=== PATIENT | female | born 1950 | race Caucasian/White ===

== ENCOUNTER → 2016-10-14 | Outpatient (CLI) | payer MEDICARE, OTHER ==
[~2016-10-14] MED LIST: /TIOT18INH INH; ANOR1AER INH; ASPI81TA PO; BENI20TA11 OR; BENI20TA11 PO; BENT10CA PO; CIPR500T19 PO; COLA100C2 OR; CRES20TA OR; DEXA4TA PO; DIGO0.25 PO; DULO1CAP2 PO; DUONSOL IN; FLAG500T PO; FURO40TA2 PO; HYDR-3713 PO; IPRASOL4 NEB; LASI20TA PO; LASI40TA PO; LIAL1.2T PO; LISI40TAB PO; LORA10TA2 PO; Loratadine PO; MIRALEX PO; MUCINEX DM PO; NEUL0.6I SC; OMEP40CA2 PO; PROBCAP4 PO; SIMV40TA2 PO; TOPA50TA7 PO; TOPI50TA OR; TYLE650T35 PO; VITA10006 PO; VITA200016 PO; ZOFR8TAB PO; [UNRECOGNIZED DRUG - CODE] PO; aleve PO; dexilant PO; gabapentin PO
[2016-10-14 14:32] LABS: MEAN CORPUSCULAR HEMOGLOBIN 33.3 pg (27.0-33.0); MEAN CORPUSCULAR VOLUME 100.9 fl (80.0-96.0); RED CELL DISTRIBUTION WIDTH 12.2 % (11.5-14.5); WHITE BLOOD COUNT 4.8 K/mm3 (4.0-10.0)
--- NOTE | 2016-10-14 14:32 | REP ---
RIGHT LOWER EXTREMITY DOPPLER VENOUS ULTRASOUND: 10/14/2016. Clinical history: Right lower extremity pain for a few months. Evaluate for DVT. Comparison: None. Technique: The deep venous system of the right lower extremity is evaluated with jarrell scale imaging, compression ultrasound, color imaging and duplex Doppler interrogation. Examination from the groin through the popliteal fossa into the proximal calf. Findings: There is full compressibility from the common femoral vein in the inguinal region through the popliteal vein. Color imaging confirms patency throughout the course of the deep venous system. There is respiratory variation and augmented flow at all levels. Incidental note made of a duplicated proximal to mid SFV. Impression: 1. No Doppler venous ultrasound evidence of DVT in the right lower extremity. Signed by Yuniel Zapata MD 10/14/2016 02:24 P
[2016-10-14 14:48] LABS: ALBUMIN 4.3 GM/DL (3.2-5.2); ALBUMIN/GLOBULIN RATIO 1.72 (1.00-1.93); ALKALINE PHOSPHATASE 132 U/L (45-117); ALT/SGPT 28 U/L (12-78); ANION GAP 7 MEQ/L (8-16); AST/SGOT 16 U/L (15-37); BILIRUBIN,TOTAL 0.3 MG/DL (0.2-1.0); BLOOD UREA NITROGEN 16 MG/DL (7-18); CALCIUM LEVEL 9.7 MG/DL (8.8-10.2); CARBON DIOXIDE LEVEL 26 MEQ/L (21-32); CHLORIDE LEVEL 108 MEQ/L (98-107); CREATININE FOR GFR 0.58 MG/DL (0.55-1.02); GLOMERULAR FILTRATION RATE > 60.0 (>45); GLUCOSE, FASTING 90 MG/DL (80-110); POTASSIUM SERUM 4.1 MEQ/L (3.5-5.1); SODIUM LEVEL 141 MEQ/L (136-145); TOTAL PROTEIN 6.8 GM/DL (6.4-8.2)
== END ==
LOC: M RAD 12:36
PROVIDERS: ATTEND Internal Medicine Gastroenterology
DX: M79.604 Pain in right leg (principal)

== ENCOUNTER → 2016-10-21 | Outpatient (CLI) | payer MEDICARE, OTHER ==
--- NOTE | 2016-10-21 10:33 | REP ---
Complete abdominal sonography and portal venous Doppler assessment: History: Abdominal pain, gastroesophageal reflux disease. Findings: Scanning through the right upper quadrant of the abdomen demonstrates a normal sized thin-walled gallbladder without evidence of stone or polyp. Common bile duct is normal measuring 0.4 cm in greatest diameter. No focal hepatic lesion is seen. Limited views of the pancreas show no abnormality. A normal size spleen is seen demonstrating calcified granulomas. Splenic dimension is 7.5 cm. A normal caliber aorta is seen measuring 1.8 cm in AP dimension. There is no visible ascites. Renal cortical echogenicity pattern is normal and contours are smooth bilaterally. Right renal dimensions are 9.9 x 4.9 x 4.1 cm. Left kidney measures 11.5 x 4.2 x 5.3 cm. There is no evidence of hydronephrosis mass, cyst or calculus. Portal venous Doppler assessment: Normal direction of flow was observed in the splenic vein and portal vein. Main portal vein measures 1.1 cm in dimension. Flow velocity in the main portal vein is 17.3 cm/sec. Venous flow velocity in the splenic vein is 28.0 cm/sec. Intrahepatic portal venous flow direction is normal. Hepatic vein Doppler tracing shows some portalization which may reflect portal hypertension. Impression: 1. Mild diffuse atrophy right kidney. 2. Portalization of hepatic vein Doppler flow, question portal hypertension. 3. Otherwise unremarkable complete abdominal sonography. Signed by Hugo Felder MD 10/21/2016 10:39 A
== END ==
LOC: M RAD 09:15
PROVIDERS: ATTEND Internal Medicine Gastroenterology
DX: R10.11 Right upper quadrant pain (principal)

== ENCOUNTER 2016-11-08 12:40 | Emergency (ER) | payer MEDICARE, OTHER ==
--- NOTE | 2016-11-08 16:06 | REP ---
Clinical: Cough and shortness of breath. Technique: PA and lateral. Comparison: 07/23/2016. Findings: Diffuse chronic changes are appreciated and similar to prior examination. Findings include a calcified granuloma in the left upper lung zone. No obvious acute consolidation, effusion, or pneumothorax. Cardiac silhouette is normal. Skeletal structures are intact. Impression: Chronic stable changes. No acute cardiopulmonary process. If the patient remains symptomatic consider chest CT for further investigation. Signed by Eliseo Gonzalez MD 11/08/2016 03:57 P
[2016-11-08 16:09] LABS: BASO % 0.5 % (0.0-1.0); EOS # 0.2 K/mm3 (0.0-0.50); LARGE UNSTAINED CELL # 0.1 K/mm3 (0.0-0.4); LARGE UNSTAINED CELL % 1.5 % (0.0-4.0); LYMPH # 2.6 K/mm3 (1.5-4.5); LYMPH % 37.9 % (24.0-44.0); MEAN CORPUSCULAR HEMOGLOBIN 32.5 pg (27.0-33.0); MEAN CORPUSCULAR HGB CONC 32.7 g/dl (32.0-36.5); MEAN CORPUSCULAR VOLUME 99.3 fl (80.0-96.0); MONO # 0.3 K/mm3 (0.0-0.8); MONO % 4.5 % (0.0-5.0); NEUTROPHILS # 3.4 K/mm3 (1.8-7.7); NEUTROPHILS % 52.5 % (36.0-66.0); PLATELET COUNT, AUTOMATED 264 k/mm3 (150-450); RED CELL DISTRIBUTION WIDTH 12.5 % (11.5-14.5); WHITE BLOOD COUNT 6.5 K/mm3 (4.0-10.0)
[2016-11-08] MEDS ORDERED: IPRATROPIUM 0.5MG/ALBUTEROL 2.5MG INH SOL UD 3ML (DUONEB)(J7620) As Ordered ONE (16:11)
[2016-11-08 16:24] LABS: ANION GAP 8 MEQ/L (8-16); BLOOD UREA NITROGEN 13 MG/DL (7-18); CALCIUM LEVEL 9.9 MG/DL (8.8-10.2); CARBON DIOXIDE LEVEL 26 MEQ/L (21-32); CHLORIDE LEVEL 106 MEQ/L (98-107); CREATININE FOR GFR 0.59 MG/DL (0.55-1.02); GLOMERULAR FILTRATION RATE > 60.0 (>45); GLUCOSE, FASTING 89 MG/DL (80-110); POTASSIUM SERUM 4.1 MEQ/L (3.5-5.1); SODIUM LEVEL 140 MEQ/L (136-145)
--- NOTE | 2016-11-08 17:06 | EDDOCDS ---
Physician Documentation [facility] Name: Milvia Alva Age: 66 yrs Sex: Female : 1950 Arrival Date: 11/08/2016 Time: 12:40 Bed PD Private MD: Ann De La Torre Disposition: 11/08/16 16:47 Discharged to Home/Self Care. Impression: Chronic obstructive pulmonary disease with (acute) exacerbation. - Condition is Stable. - Discharge Instructions: Chronic Obstructive Pulmonary Disease, Upper Respiratory Infection, Adult, [id number]. - Prescriptions for Prednisone 20 mg Oral Tablet - take 1 tablet by ORAL route as directed Day 1-3: 3 po, day 4-7: 2 po, day 8-10: 1 po; 20 tablet. benzonatate 200 mg Oral Capsule - take 1 capsule by ORAL route 3 times per day As needed; 30 capsule. - Medication Reconciliation, Local Pharmacy Hours form. - Follow up: Ann De La Torre RNNP; When: As soon as possible; Reason: Recheck today's complaints, Continuance of care. Follow up: Emergency Department; When: As needed; Reason: Fever > 102F, Trouble breathing, Worsening of conditions. - Problem is new. - Symptoms have improved. Historical: - Allergies: Advair Diskus (thrush); - Home Meds: 1. Lialda 1.2 gram oral TbEC once daily 2. duloxetine 30 mg Oral cpDR 2 times per day 3. cyclobenzaprine 5 mg Oral tab as needed 4. omeprazole 40 mg Oral cpDR 1 cap 2 times per day 5. simvastatin 40 mg Oral tab 1 tab once daily 6. topiramate 150 mg oral CSpX twice a day 7. Probiotic oral daily 8. loratadine 10 mg Oral tab 1 tab once daily 9. Vitamin D 2000 units Oral daily 10. DuoNeb 0.5 mg-3 mg(2.5 mg base)/3 mL Inhl nebu 4 times per day 11. Vitamin C 1,000 mg Oral tab daily 12. tylenol arthritis 2 tab prn prn - PMHx: Arthritis; Asthma; back injury--bulging discs--pinched nerves; c-diff; COPD; Hypercholesterolemia; Hypertension; Lyme Disease; right ling cancer; Ulcerative Colitis; whooping cough; - Social history: Smoking status: Patient states former smoker of tobacco. No barriers to communication noted, The patient speaks fluent Sinhala. - Family history: Not pertinent. - : The pt / caregiver states he / she is not on anticoagulants. Home medication list is obtained from the patient. - Exposure Risk Screening:: None identified. Vital Signs: 11/08 12:42 BP 177 / 79; Pulse 78; Resp 18 S; Temp 97.4(O); Pulse Ox 100% on R/A; Weight 61.23 kg / gr2 134.99 lbs (R); Height 4 ft. 11 in. (149.86 cm) (R); Pain 8/10; 17:02 BP 118 / 72; Pulse 87; Resp 18; Temp 97.5(O); Pulse Ox 98% on R/A; ct3 12:42 Body Mass Index 27.27 (61.23 kg, 149.86 cm) gr2 MDM: 12:58 ECG WITH READING ER PHYS+CARDIAG ordered. EDMS 15:31 Financial registration complete. lg 15:35 [facility] Payment Agreement was scanned into [employer] and attached to record. lg 15:44 Obtain sample by nasopharyngeal swab ordered. ar2 15:44 Albuterol-Ipratropium 1 neb Nebulizer every 20 minutes x3 ordered. ar2 15:45 CBC with Diff Ordered. EDMS 15:45 MED Profile Ordered. EDMS 15:45 -Influenza A&B Rapid Antigen - Nose Ordered. EDMS 15:45 Chest, 2 View (pa\E\lat) Ordered. EDMS 16:37 CBC with Diff Reviewed. ar2 16:37 -Influenza A&B Rapid Antigen - Nose Reviewed. ar2 16:37 MED Profile Reviewed. ar2 16:37 Chest, 2 View (pa\E\lat) Reviewed. ar2 Administered Medications: 16:10 Drug: Albuterol-Ipratropium 1 neb [ipratropium-albuterol 0.5 mg-3 mg(2.5 mg base)/3 mL js11 nebulization soln (1 neb)] Route: Nebulizer; 16:30 Drug: Albuterol-Ipratropium 1 neb [ipratropium-albuterol 0.5 mg-3 mg(2.5 mg base)/3 mL js11 nebulization soln (1 neb)] Route: Nebulizer; 16:40 Drug: Albuterol-Ipratropium 1 neb [ipratropium-albuterol 0.5 mg-3 mg(2.5 mg base)/3 mL js11 nebulization soln (1 neb)] Route: Nebulizer; Signatures: Dispatcher [employer] EDMica Butt, Jonn Reg lg Meek Rosario, [place] BARTHOLOMEW ar2 Soraya Trujillo RN RN mk4 Nikos Gillis js11 The chart was reviewed and I authenticate all verbal orders and agree with the evaluation and treatment provided.Attachments: 15:35 [facility] Payment Agreement lg MTDD
--- NOTE | 2016-11-08 17:06 | EDDOCDS ---
Nurse's Notes [facility] Name: Milvia Alva Age: 66 yrs Sex: Female : 1950 Arrival Date: 11/08/2016 Time: 12:40 Bed PD Private MD: Ann De La Torre Diagnosis: Chronic obstructive pulmonary disease with (acute) exacerbation Presentation: 11/08 12:48 Presenting complaint: Patient states: had an upper right lung removed in May and mk4 Tuesday morning she started with pain right chest radiating to right scapular area, right arm and difficulty breathing. Adult Sepsis Screening: The patient does not have new or worsening altered mentation. Patient's respiratory rate is less than 22. Systolic blood pressure is greater than 100. Patient has a qSOFA score of 0- Negative Sepsis Screen. Suicide/Homicide risk assessment- the patient denies having any suicidal and/or homicidal ideations and does not present with any other emotional, behavioral or mental health complaints. Status: Patient is not a food service representative or dependent. Transition of care: patient was not received from another setting of care. 12:48 Acuity: CHUCK Level 3 4 12:48 Method Of Arrival: Walkin/Carried/Asstd mk4 Triage Assessment: 12:55 General: Appears in no apparent distress. Pain: Location: anterior aspect of right mk4 upper chest, mid-sternal area and right breast Pain currently is 8 out of 10 on a pain scale. Respiratory: Onset: The symptoms/episode began/occurred tuesday. Historical: - Allergies: Advair Diskus (thrush); - Home Meds: 1. Lialda 1.2 gram oral TbEC once daily 2. duloxetine 30 mg Oral cpDR 2 times per day 3. cyclobenzaprine 5 mg Oral tab as needed 4. omeprazole 40 mg Oral cpDR 1 cap 2 times per day 5. simvastatin 40 mg Oral tab 1 tab once daily 6. topiramate 150 mg oral CSpX twice a day 7. Probiotic oral daily 8. loratadine 10 mg Oral tab 1 tab once daily 9. Vitamin D 2000 units Oral daily 10. DuoNeb 0.5 mg-3 mg(2.5 mg base)/3 mL Inhl nebu 4 times per day 11. Vitamin C 1,000 mg Oral tab daily 12. tylenol arthritis 2 tab prn prn - PMHx: Arthritis; Asthma; back injury--bulging discs--pinched nerves; c-diff; COPD; Hypercholesterolemia; Hypertension; Lyme Disease; right ling cancer; Ulcerative Colitis; whooping cough; - Social history: Smoking status: Patient states former smoker of tobacco. No barriers to communication noted, The patient speaks fluent Yakut. - Family history: Not pertinent. - : The pt / caregiver states he / she is not on anticoagulants. Home medication list is obtained from the patient. - Exposure Risk Screening:: None identified. Screenin:56 Screening information is obtained from the patient. Fall risk: No risks identified. mk4 Assistance ADL's: requires no assistance with activities of daily living. Abuse/DV Screen: The patient / caregiver reports he/she is: not in a situation that causes fear, pain or injury. Nutritional screening: No deficits noted. Advance Directives: Currently, there is no health care proxy. There is no active DNR order. There is no Power of Heading Repairer. Advance directive information has not previously been placed in an [facility] medical record. Further advance directive information is declined. home support is adequate. Assessment: 14:55 Cardiovascular: Rhythm is regular Chest pain. Respiratory: Airway is patent Respiratory mk4 effort is even, labored, on exertion Breath sounds with wheezes inspiratory expiratory bilaterally. 16:55 General: Appears in no apparent distress, comfortable. mk4 16:56 General: Appears in no apparent distress, comfortable. Respiratory: Airway is patent mk4 Respiratory effort is even, unlabored, Respiratory pattern is regular, pt feeling better. Derm: Skin is intact, is healthy with good turgor, Skin is Skin is pink, warm & dry. 16:57 General: Appears in no apparent distress, comfortable. mk4 17:05 Respiratory: mk4 Vital Signs: 12:42 BP 177 / 79; Pulse 78; Resp 18 S; Temp 97.4(O); Pulse Ox 100% on R/A; Weight 61.23 kg gr2 (R); Height 4 ft. 11 in. (149.86 cm) (R); Pain 8/10; 17:02 BP 118 / 72; Pulse 87; Resp 18; Temp 97.5(O); Pulse Ox 98% on R/A; ct3 12:42 Body Mass Index 27.27 (61.23 kg, 149.86 cm) gr2 Vitals: 12:42 Log In Time: November 08, 2016 at 12:42. gr2 ED Course: 12:42 Patient visited by Ambika Flores. gr2 12:42 Ann De La Torre RNNP is Private Physician. gr2 12:42 Patient moved to Waiting gr2 12:46 Patient visited by Ambika Flores. gr2 12:46 Patient moved to Pre RCE gr2 12:49 Triage Initiated mk4 14:24 Patient moved to Triage 1 kcs 14:35 Patient visited by Soraya Trujillo RN. mk4 15:29 Meek Rosario PA-C is PHCP. ar2 15:29 Anthony Espinoza MD is Attending Physician. ar2 15:29 Patient visited by Meek Rosario PA-C. ar2 15:35 [facility] Payment Agreement was scanned into [employer] and attached to record. lg 15:50 Patient moved to PD2 / kcs 15:50 -Influenza A&B Rapid Antigen - Nose Sent. kcs 16:01 MED Profile Sent. kcs 16:01 CBC with Diff Sent. kcs 16:07 Chest, 2 View (pa\E\lat) Returned. EDMS 16:15 Patient visited by Soraya Trujillo RN. mk4 16:46 Ann De La Torre RNNP is Referral Physician. ar2 16:55 Patient visited by Mayela Lyles PCA. ct3 17:04 The patient / caregiver is instructed regarding the plan of care and ED course. mk4 17:04 No IV's were initiated during this patient's visit. No procedures done that require [facility] assistance. Administered Medications: 16:10 Drug: Albuterol-Ipratropium 1 neb [ipratropium-albuterol 0.5 mg-3 mg(2.5 mg base)/3 mL js11 nebulization soln (1 neb)] Route: Nebulizer; 16:30 Drug: Albuterol-Ipratropium 1 neb [ipratropium-albuterol 0.5 mg-3 mg(2.5 mg base)/3 mL js11 nebulization soln (1 neb)] Route: Nebulizer; 16:40 Drug: Albuterol-Ipratropium 1 neb [ipratropium-albuterol 0.5 mg-3 mg(2.5 mg base)/3 mL js11 nebulization soln (1 neb)] Route: Nebulizer; RT: 16:10 Initial Med Neb Given as ordered Patient was instructed and evaluated on procedure js11 Patient tolerated procedure well without adverse effect. Respiratory: Breath sounds are diminished bilaterally. Breath sounds with wheezes bilaterally. at expiration at inspiration. 16:30 Subsequent Med Neb Given as ordered Patient tolerated procedure well without adverse js11 effect. Respiratory: Breath sounds with wheezes bilaterally. at expiration. 16:40 Subsequent Med Neb Given as ordered Patient tolerated procedure well without adverse js11 effect. Respiratory: Breath sounds with wheezes bilaterally. at expiration. Order Results: Lab Order: -Influenza A&B Rapid Antigen - Nose; SPEC'M 11/08/16 15:48 Test: INFLUENZA A RAPID SCR by ICA; Value: INFLUENZA A RESULTS NEGATIVE; Status: F Test: INFLUENZA A RAPID SCR by ICA; Value: Comments:; Status: F Test: INFLUENZA B RAPID SCR by ICA; Value: INFLUENZA B RESULTS NEGATIVE; Status: F Test Note: ; The Influenza test is a direct rapid immunoassay for the qualitative detection of Influenza viral antigen. Cell culture (Viral Culture) testing should be considered to confirm NEGATIVE results and to assist in detecting other viruses that can provide similar clinical symptoms. Please contact the lab within 24 hours ([phone]) if confirmatory testing is desired. Lab Order: CBC with Diff; SPEC'M 11/08/16 15:48 Test: WHITE BLOOD COUNT; Value: 6.5; Range: 4.0-10.0; Units: K/mm3; Status: F Test: RED BLOOD COUNT; Value: 4.24; Range: 4.00-5.40; Units: M/mm3; Status: F Test: HEMOGLOBIN; Value: 13.8; Range: 12.0-16.0; Units: g/dl; Status: F Test: HEMATOCRIT; Value: 42.1; Range: 36.0-47.0; Units: %; Status: F Test: MEAN CORPUSCULAR VOLUME; Value: 99.3; Range: 80.0-96.0; Abnormal: Above high normal; Units: fl; Status: F Test: MEAN CORPUSCULAR HEMOGLOBIN; Value: 32.5; Range: 27.0-33.0; Units: pg; Status: F Test: MEAN CORPUSCULAR HGB CONC; Value: 32.7; Range: 32.0-36.5; Units: g/dl; Status: F Test: RED CELL DISTRIBUTION WIDTH; Value: 12.5; Range: 11.5-14.5; Units: %; Status: F Test: PLATELET COUNT, AUTOMATED; Value: 264; Range: 150-450; Units: k/mm3; Status: F Test: NEUTROPHILS %; Value: 52.5; Range: 36.0-66.0; Units: %; Status: F Test: LYMPH %; Value: 37.9; Range: 24.0-44.0; Units: %; Status: F Test: MONO %; Value: 4.5; Range: 0.0-5.0; Units: %; Status: F Test: EOS %; Value: 3.0; Range: 0.0-3.0; Units: %; Status: F Test: BASO %; Value: 0.5; Range: 0.0-1.0; Units: %; Status: F Test: LARGE UNSTAINED CELL %; Value: 1.5; Range: 0.0-4.0; Units: %; Status: F Test: NEUTROPHILS #; Value: 3.4; Range: 1.8-7.7; Units: K/mm3; Status: F Test: LYMPH #; Value: 2.6; Range: 1.5-4.5; Units: K/mm3; Status: F Test: MONO #; Value: 0.3; Range: 0.0-0.8; Units: K/mm3; Status: F Test: EOS #; Value: 0.2; Range: 0.0-0.50; Units: K/mm3; Status: F Test: BASO #; Value: 0.0; Range: 0.0-0.2; Units: K/mm3; Status: F Test: LARGE UNSTAINED CELL #; Value: 0.1; Range: 0.0-0.4; Units: K/mm3; Status: F Lab Order: MED Profile; SPEC'M 11/08/16 15:48 Test: GLUCOSE, FASTING; Value: 89; Range: 80-110; Units: MG/DL; Status: F Test: BLOOD UREA NITROGEN; Value: 13; Range: 7-18; Units: MG/DL; Status: F Test: CREATININE FOR GFR; Value: 0.59; Range: 0.55-1.02; Units: MG/DL; Status: F Test: GLOMERULAR FILTRATION RATE; Value: > 60.0; Range: >45; Status: F Test: SODIUM LEVEL; Value: 140; Range: 136-145; Units: MEQ/L; Status: F Test: POTASSIUM SERUM; Value: 4.1; Range: 3.5-5.1; Units: MEQ/L; Status: F Test: CHLORIDE LEVEL; Value: 106; Range: 98-107; Units: MEQ/L; Status: F Test: CARBON DIOXIDE LEVEL; Value: 26; Range: 21-32; Units: MEQ/L; Status: F Test: ANION GAP; Value: 8; Range: 8-16; Units: MEQ/L; Status: F Test: CALCIUM LEVEL; Value: 9.9; Range: 8.8-10.2; Units: MG/DL; Status: F Test Note: ; Units are mL/min/1.73 m2 Chronic Kidney Disease Staging per NKF: Stage I & II GFR >=60 Normal to Mildly Decreased Stage III GFR 30-59 Moderately Decreased Stage IV GFR 15-29 Severely Decreased Stage V GFR <15 Very Little GFR Left ESRD GFR <15 on DEALER DEVELOPMENT MANAGER Radiology Order: Chest, 2 View (pa\E\lat) Test: Chest, 2 View (pa\E\lat) REASON FOR EXAMINATION: cough, sob; Clinical: Cough and shortness of breath.; ; Technique: PA and lateral.; ; Comparison: 07/23/2016.; ; Findings:; Diffuse chronic changes are appreciated and similar to prior examination.; Findings include a calcified granuloma in the left upper lung zone. No obvious; acute consolidation, effusion, or pneumothorax. Cardiac silhouette is normal.; Skeletal structures are intact.; ; Impression:; Chronic stable changes.; No acute cardiopulmonary process.; If the patient remains symptomatic consider chest CT for further investigation.; ; ; Signed by; Eliseo Gonzalez MD 11/08/2016 03:57 P; Outcome: 16:47 Discharge ordered by Provider. ar2 17:04 Discharge Assessment: Patient awake, alert and oriented x 3. No cognitive and/or mk4 functional deficits noted. Patient verbalized understanding of disposition instructions. Patient. Discharge Assessment: patient administered narcotics - no. The following High Risk Discharge criteria are identified: None. Condition: good Condition: stable. No special radiology studies were completed. Property sent home with patient. 17:05 Patient left the ED. mk4 Signatures: Dispatcher [employer] EDKaroline Enamorado, RN RN kcs Mica Martinez, Reg Reg lg Meek Rosario, [place] PALakisha ar2 Mayela Lyles, [employer] ct3 Nikos Gillis js11 Ambika Flores gr2 Soraya Trujillo RN RN mk4 Corrections: (The following items were deleted from the chart) 17:05 16:57 General: Appears in no apparent distress, comfortable, mk4 mk4 MTDD
--- NOTE | 2016-11-09 08:00 | ECGEPIP ---
Stationary ECG Study [facility] - ED Test Date: 2016-11-08 Pat Name: VERONIKA WEI Department: Room: - Gender: F Pet Care Technician: ernestina : 1950 Requested By: MOHINDER CAMARILLO PA-C. Order Number: [id number] Reading MD: Yari Noble Measurements Intervals [place] Rate: 74 P: -11 [place]: 171 QRS: 4 QRSD: 89 T: 1 QT: 367 QTc: 407 Interpretive Statements SINUS RHYTHM Electronically Signed On 11-09-2016 8:00:20 EST by Yari Noble
--- NOTE | 2016-11-10 18:07 | EDDOCDS ---
Nurse's Notes [facility] Name: Veronika Alva Age: 66 yrs Sex: Female : 1950 Arrival Date: 11/08/2016 Time: 12:40 Bed PD Private MD: Ann De La Torre Diagnosis: Chronic obstructive pulmonary disease with (acute) exacerbation Presentation: 11/08 12:48 Presenting complaint: Patient states: had an upper right lung removed in May and mk4 Tuesday morning she started with pain right chest radiating to right scapular area, right arm and difficulty breathing. Adult Sepsis Screening: The patient does not have new or worsening altered mentation. Patient's respiratory rate is less than 22. Systolic blood pressure is greater than 100. Patient has a qSOFA score of 0- Negative Sepsis Screen. Suicide/Homicide risk assessment- the patient denies having any suicidal and/or homicidal ideations and does not present with any other emotional, behavioral or mental health complaints. Status: Patient is not a technical services specialist or dependent. Transition of care: patient was not received from another setting of care. 12:48 Acuity: CHUCK Level 3 4 12:48 Method Of Arrival: Walkin/Carried/Asstd mk4 Triage Assessment: 12:55 General: Appears in no apparent distress. Pain: Location: anterior aspect of right mk4 upper chest, mid-sternal area and right breast Pain currently is 8 out of 10 on a pain scale. Respiratory: Onset: The symptoms/episode began/occurred tuesday. Historical: - Allergies: Advair Diskus (thrush); - Home Meds: 1. Lialda 1.2 gram oral TbEC once daily 2. duloxetine 30 mg Oral cpDR 2 times per day 3. cyclobenzaprine 5 mg Oral tab as needed 4. omeprazole 40 mg Oral cpDR 1 cap 2 times per day 5. simvastatin 40 mg Oral tab 1 tab once daily 6. topiramate 150 mg oral CSpX twice a day 7. Probiotic oral daily 8. loratadine 10 mg Oral tab 1 tab once daily 9. Vitamin D 2000 units Oral daily 10. DuoNeb 0.5 mg-3 mg(2.5 mg base)/3 mL Inhl nebu 4 times per day 11. Vitamin C 1,000 mg Oral tab daily 12. tylenol arthritis 2 tab prn prn - PMHx: Arthritis; Asthma; back injury--bulging discs--pinched nerves; c-diff; COPD; Hypercholesterolemia; Hypertension; Lyme Disease; right ling cancer; Ulcerative Colitis; whooping cough; - Social history: Smoking status: Patient states former smoker of tobacco. No barriers to communication noted, The patient speaks fluent Danish. - Family history: Not pertinent. - : The pt / caregiver states he / she is not on anticoagulants. Home medication list is obtained from the patient. - Exposure Risk Screening:: None identified. Screenin:56 Screening information is obtained from the patient. Fall risk: No risks identified. mk4 Assistance ADL's: requires no assistance with activities of daily living. Abuse/DV Screen: The patient / caregiver reports he/she is: not in a situation that causes fear, pain or injury. Nutritional screening: No deficits noted. Advance Directives: Currently, there is no health care proxy. There is no active DNR order. There is no Power of General Contractor. Advance directive information has not previously been placed in an [facility] medical record. Further advance directive information is declined. home support is adequate. Assessment: 14:55 Cardiovascular: Rhythm is regular Chest pain. Respiratory: Airway is patent Respiratory mk4 effort is even, labored, on exertion Breath sounds with wheezes inspiratory expiratory bilaterally. 16:55 General: Appears in no apparent distress, comfortable. mk4 16:56 General: Appears in no apparent distress, comfortable. Respiratory: Airway is patent mk4 Respiratory effort is even, unlabored, Respiratory pattern is regular, pt feeling better. Derm: Skin is intact, is healthy with good turgor, Skin is Skin is pink, warm & dry. 16:57 General: Appears in no apparent distress, comfortable. mk4 17:05 Respiratory: mk4 Vital Signs: 12:42 BP 177 / 79; Pulse 78; Resp 18 S; Temp 97.4(O); Pulse Ox 100% on R/A; Weight 61.23 kg gr2 (R); Height 4 ft. 11 in. (149.86 cm) (R); Pain 8/10; 17:02 BP 118 / 72; Pulse 87; Resp 18; Temp 97.5(O); Pulse Ox 98% on R/A; ct3 12:42 Body Mass Index 27.27 (61.23 kg, 149.86 cm) gr2 Vitals: 12:42 Log In Time: November 08, 2016 at 12:42. gr2 ED Course: 12:42 Patient visited by Ambika Flores. gr2 12:42 Ann De La Torre RNNP is Private Physician. gr2 12:42 Patient moved to Waiting gr2 12:46 Patient visited by Ambika Flores. gr2 12:46 Patient moved to Pre RCE gr2 12:49 Triage Initiated mk4 14:24 Patient moved to Triage 1 kcs 14:35 Patient visited by Soraya Trujillo RN. mk4 15:29 Meek Camarillo PA-C is PHCP. ar2 15:29 Anthony Espinoza MD is Attending Physician. ar2 15:29 Patient visited by Meek Camarillo PA-C. ar2 15:35 PENDING SALE TO [facility] Payment Agreement was scanned into Scality and attached to record. lg 15:50 Patient moved to PD2 / kcs 15:50 -Influenza A&B Rapid Antigen - Nose Sent. kcs 16:01 MED Profile Sent. kcs 16:01 CBC with Diff Sent. kcs 16:07 Chest, 2 View (pa\E\lat) Returned. EDMS 16:15 Patient visited by Soraya Trujillo RN. mk4 16:46 Ann De La Torre RNNP is Referral Physician. ar2 16:55 Patient visited by Mayela Lyles PCA. ct3 17:04 The patient / caregiver is instructed regarding the plan of care and ED course. mk4 17:04 No IV's were initiated during this patient's visit. No procedures done that require [facility] assistance. 11/09 08:04 EKG-ADULT Returned. EDMS 11:13 T-Sheet-- Draft Copy was scanned into Scality and attached to record. gb 11:13 ECG/EKG was scanned into Scality and attached to record. gb Administered Medications: 11/08 16:10 Drug: Albuterol-Ipratropium 1 neb [ipratropium-albuterol 0.5 mg-3 mg(2.5 mg base)/3 mL js11 nebulization soln (1 neb)] Route: Nebulizer; 16:30 Drug: Albuterol-Ipratropium 1 neb [ipratropium-albuterol 0.5 mg-3 mg(2.5 mg base)/3 mL js11 nebulization soln (1 neb)] Route: Nebulizer; 16:40 Drug: Albuterol-Ipratropium 1 neb [ipratropium-albuterol 0.5 mg-3 mg(2.5 mg base)/3 mL js11 nebulization soln (1 neb)] Route: Nebulizer; RT: 16:10 Initial Med Neb Given as ordered Patient was instructed and evaluated on procedure js11 Patient tolerated procedure well without adverse effect. Respiratory: Breath sounds are diminished bilaterally. Breath sounds with wheezes bilaterally. at expiration at inspiration. 16:30 Subsequent Med Neb Given as ordered Patient tolerated procedure well without adverse js11 effect. Respiratory: Breath sounds with wheezes bilaterally. at expiration. 16:40 Subsequent Med Neb Given as ordered Patient tolerated procedure well without adverse js11 effect. Respiratory: Breath sounds with wheezes bilaterally. at expiration. Order Results: Lab Order: -Influenza A&B Rapid Antigen - Nose; SPEC'M 11/08/16 15:48 Test: INFLUENZA A RAPID SCR by ICA; Value: INFLUENZA A RESULTS NEGATIVE; Status: F Test: INFLUENZA A RAPID SCR by ICA; Value: Comments:; Status: F Test: INFLUENZA B RAPID SCR by ICA; Value: INFLUENZA B RESULTS NEGATIVE; Status: F Test Note: ; The Influenza test is a direct rapid immunoassay for the qualitative detection of Influenza viral antigen. Cell culture (Viral Culture) testing should be considered to confirm NEGATIVE results and to assist in detecting other viruses that can provide similar clinical symptoms. Please contact the lab within 24 hours ([phone]) if confirmatory testing is desired. Lab Order: CBC with Diff; SPEC'M 11/08/16 15:48 Test: WHITE BLOOD COUNT; Value: 6.5; Range: 4.0-10.0; Units: K/mm3; Status: F Test: RED BLOOD COUNT; Value: 4.24; Range: 4.00-5.40; Units: M/mm3; Status: F Test: HEMOGLOBIN; Value: 13.8; Range: 12.0-16.0; Units: g/dl; Status: F Test: HEMATOCRIT; Value: 42.1; Range: 36.0-47.0; Units: %; Status: F Test: MEAN CORPUSCULAR VOLUME; Value: 99.3; Range: 80.0-96.0; Abnormal: Above high normal; Units: fl; Status: F Test: MEAN CORPUSCULAR HEMOGLOBIN; Value: 32.5; Range: 27.0-33.0; Units: pg; Status: F Test: MEAN CORPUSCULAR HGB CONC; Value: 32.7; Range: 32.0-36.5; Units: g/dl; Status: F Test: RED CELL DISTRIBUTION WIDTH; Value: 12.5; Range: 11.5-14.5; Units: %; Status: F Test: PLATELET COUNT, AUTOMATED; Value: 264; Range: 150-450; Units: k/mm3; Status: F Test: NEUTROPHILS %; Value: 52.5; Range: 36.0-66.0; Units: %; Status: F Test: LYMPH %; Value: 37.9; Range: 24.0-44.0; Units: %; Status: F Test: MONO %; Value: 4.5; Range: 0.0-5.0; Units: %; Status: F Test: EOS %; Value: 3.0; Range: 0.0-3.0; Units: %; Status: F Test: BASO %; Value: 0.5; Range: 0.0-1.0; Units: %; Status: F Test: LARGE UNSTAINED CELL %; Value: 1.5; Range: 0.0-4.0; Units: %; Status: F Test: NEUTROPHILS #; Value: 3.4; Range: 1.8-7.7; Units: K/mm3; Status: F Test: LYMPH #; Value: 2.6; Range: 1.5-4.5; Units: K/mm3; Status: F Test: MONO #; Value: 0.3; Range: 0.0-0.8; Units: K/mm3; Status: F Test: EOS #; Value: 0.2; Range: 0.0-0.50; Units: K/mm3; Status: F Test: BASO #; Value: 0.0; Range: 0.0-0.2; Units: K/mm3; Status: F Test: LARGE UNSTAINED CELL #; Value: 0.1; Range: 0.0-0.4; Units: K/mm3; Status: F Lab Order: MED Profile; ZOEY 11/08/16 15:48 Test: GLUCOSE, FASTING; Value: 89; Range: 80-110; Units: MG/DL; Status: F Test: BLOOD UREA NITROGEN; Value: 13; Range: 7-18; Units: MG/DL; Status: F Test: CREATININE FOR GFR; Value: 0.59; Range: 0.55-1.02; Units: MG/DL; Status: F Test: GLOMERULAR FILTRATION RATE; Value: > 60.0; Range: >45; Status: F Test: SODIUM LEVEL; Value: 140; Range: 136-145; Units: MEQ/L; Status: F Test: POTASSIUM SERUM; Value: 4.1; Range: 3.5-5.1; Units: MEQ/L; Status: F Test: CHLORIDE LEVEL; Value: 106; Range: 98-107; Units: MEQ/L; Status: F Test: CARBON DIOXIDE LEVEL; Value: 26; Range: 21-32; Units: MEQ/L; Status: F Test: ANION GAP; Value: 8; Range: 8-16; Units: MEQ/L; Status: F Test: CALCIUM LEVEL; Value: 9.9; Range: 8.8-10.2; Units: MG/DL; Status: F Test Note: ; Units are mL/min/1.73 m2 Chronic Kidney Disease Staging per NKF: Stage I & II GFR >=60 Normal to Mildly Decreased Stage III GFR 30-59 Moderately Decreased Stage IV GFR 15-29 Severely Decreased Stage V GFR <15 Very Little GFR Left ESRD GFR <15 on [employer]PERVISOR Radiology Order: EKG-ADULT Test: EKG-ADULT REASON FOR EXAMINATION: sob; Stationary ECG Study; [facility] - ED; ; Test Date: 2016-11-08; Pat Name: VERONIKA ALVA Department:; Room: -; Gender: F Septic Technician: ernestina; : 1950 Requested By: MEEK CAMARILLO PA-C.; Order Number: [id number] Reading MD: Yari Noble; Measurements; Intervals [place]; Rate: 74 P: -11; ND: 171 QRS: 4; QRSD: 89 T: 1; QT: 367; QTc: 407; Interpretive Statements; SINUS RHYTHM; ; Electronically Signed On 11-09-2016 8:00:20 EST by Yari Noble; Radiology Order: Chest, 2 View (pa\E\lat) Test: Chest, 2 View (pa\E\lat) REASON FOR EXAMINATION: cough, sob; Clinical: Cough and shortness of breath.; ; Technique: PA and lateral.; ; Comparison: 07/23/2016.; ; Findings:; Diffuse chronic changes are appreciated and similar to prior examination.; Findings include a calcified granuloma in the left upper lung zone. No obvious; acute consolidation, effusion, or pneumothorax. Cardiac silhouette is normal.; Skeletal structures are intact.; ; Impression:; Chronic stable changes.; No acute cardiopulmonary process.; If the patient remains symptomatic consider chest CT for further investigation.; ; ; Signed by; Eliseo Gonzalez MD 11/08/2016 03:57 P; Outcome: 16:47 Discharge ordered by Provider. ar2 17:04 Discharge Assessment: Patient awake, alert and oriented x 3. No cognitive and/or mk4 functional deficits noted. Patient verbalized understanding of disposition instructions. Patient. Discharge Assessment: patient administered narcotics - no. The following High Risk Discharge criteria are identified: None. Condition: good Condition: stable. No special radiology studies were completed. Property sent home with patient. 17:05 Patient left the ED. mk4 Signatures: Dispatcher [employer] Karoline Contreras, RN RN [facility] [place] Annie Fuentes, Reg Reg gb Mica Martinez, Reg Reg lg Meek Camarillo PA-C PA-C ar2 Mayela Lyles, STAFFING ASSOCIATE STAFFING ASSOCIATE ct3 Nikos Gillis js11 Ambika Flores gr2 Soraya Trujillo RN RN mk4 Corrections: (The following items were deleted from the chart) 17:05 16:57 General: Appears in no apparent distress, comfortable, mk4 mk4 Chart Complete MTDD
--- NOTE | 2016-11-10 18:07 | EDDOCDS ---
Physician Documentation [facility] Name: Milvia Alva Age: 66 yrs Sex: Female : 1950 Arrival Date: 11/08/2016 Time: 12:40 Bed PD Private MD: Ann De La Torre Disposition: 11/08/16 16:47 Discharged to Home/Self Care. Impression: Chronic obstructive pulmonary disease with (acute) exacerbation. - Condition is Stable. - Discharge Instructions: Chronic Obstructive Pulmonary Disease, Upper Respiratory Infection, Adult, [id number]. - Prescriptions for Prednisone 20 mg Oral Tablet - take 1 tablet by ORAL route as directed Day 1-3: 3 po, day 4-7: 2 po, day 8-10: 1 po; 20 tablet. benzonatate 200 mg Oral Capsule - take 1 capsule by ORAL route 3 times per day As needed; 30 capsule. - Medication Reconciliation, Local Pharmacy Hours form. - Follow up: Ann De La Torre RNNP; When: As soon as possible; Reason: Recheck today's complaints, Continuance of care. Follow up: Emergency Department; When: As needed; Reason: Fever > 102F, Trouble breathing, Worsening of conditions. - Problem is new. - Symptoms have improved. Historical: - Allergies: Advair Diskus (thrush); - Home Meds: 1. Lialda 1.2 gram oral TbEC once daily 2. duloxetine 30 mg Oral cpDR 2 times per day 3. cyclobenzaprine 5 mg Oral tab as needed 4. omeprazole 40 mg Oral cpDR 1 cap 2 times per day 5. simvastatin 40 mg Oral tab 1 tab once daily 6. topiramate 150 mg oral CSpX twice a day 7. Probiotic oral daily 8. loratadine 10 mg Oral tab 1 tab once daily 9. Vitamin D 2000 units Oral daily 10. DuoNeb 0.5 mg-3 mg(2.5 mg base)/3 mL Inhl nebu 4 times per day 11. Vitamin C 1,000 mg Oral tab daily 12. tylenol arthritis 2 tab prn prn - PMHx: Arthritis; Asthma; back injury--bulging discs--pinched nerves; c-diff; COPD; Hypercholesterolemia; Hypertension; Lyme Disease; right ling cancer; Ulcerative Colitis; whooping cough; - Social history: Smoking status: Patient states former smoker of tobacco. No barriers to communication noted, The patient speaks fluent Setswana. - Family history: Not pertinent. - : The pt / caregiver states he / she is not on anticoagulants. Home medication list is obtained from the patient. - Exposure Risk Screening:: None identified. Vital Signs: 11/08 12:42 BP 177 / 79; Pulse 78; Resp 18 S; Temp 97.4(O); Pulse Ox 100% on R/A; Weight 61.23 kg / gr2 134.99 lbs (R); Height 4 ft. 11 in. (149.86 cm) (R); Pain 8/10; 17:02 BP 118 / 72; Pulse 87; Resp 18; Temp 97.5(O); Pulse Ox 98% on R/A; ct3 12:42 Body Mass Index 27.27 (61.23 kg, 149.86 cm) gr2 MDM: 12:58 ECG WITH READING ER PHYS+CARDIAG ordered. EDMS 15:31 Financial registration complete. lg 15:35 [facility] Payment Agreement was scanned into [employer] and attached to record. lg 15:44 Obtain sample by nasopharyngeal swab ordered. ar2 15:44 Albuterol-Ipratropium 1 neb Nebulizer every 20 minutes x3 ordered. ar2 15:45 CBC with Diff Ordered. EDMS 15:45 MED Profile Ordered. EDMS 15:45 -Influenza A&B Rapid Antigen - Nose Ordered. EDMS 15:45 Chest, 2 View (pa\E\lat) Ordered. EDMS 16:37 CBC with Diff Reviewed. ar2 16:37 -Influenza A&B Rapid Antigen - Nose Reviewed. ar2 16:37 MED Profile Reviewed. ar2 16:37 Chest, 2 View (pa\E\lat) Reviewed. ar2 11/09 11:13 T-Sheet-- Draft Copy was scanned into [employer] and attached to record. gb 11:13 ECG/EKG was scanned into [employer] and attached to record. gb Administered Medications: 11/08 16:10 Drug: Albuterol-Ipratropium 1 neb [ipratropium-albuterol 0.5 mg-3 mg(2.5 mg base)/3 mL js11 nebulization soln (1 neb)] Route: Nebulizer; 16:30 Drug: Albuterol-Ipratropium 1 neb [ipratropium-albuterol 0.5 mg-3 mg(2.5 mg base)/3 mL js11 nebulization soln (1 neb)] Route: Nebulizer; 16:40 Drug: Albuterol-Ipratropium 1 neb [ipratropium-albuterol 0.5 mg-3 mg(2.5 mg base)/3 mL js11 nebulization soln (1 neb)] Route: Nebulizer; Signatures: Dispatcher [employer] EDMS Annie Fuentes, Reg Reg gb Mica Martinez, Reg Reg lg Meek Rosario PA-C PALakisha ar2 Soraya Trujillo RN RN mk4 Nikos Gillis js11 The chart was reviewed and I authenticate all verbal orders and agree with the evaluation and treatment provided.Attachments: 15:35 [facility] Payment Agreement lg 11/09 11:13 T-Sheet-- Draft Copy gb 11:13 ECG/EKG gb Chart Complete MTDD
--- NOTE | 2016-11-10 18:07 | EDDOCDS ---
Physician Documentation [facility] Name: Milvia Alva Age: 66 yrs Sex: Female : 1950 Arrival Date: 11/08/2016 Time: 12:40 Bed PD Private MD: Ann De La Torre Disposition: 11/08/16 16:47 Discharged to Home/Self Care. Impression: Chronic obstructive pulmonary disease with (acute) exacerbation. - Condition is Stable. - Discharge Instructions: Chronic Obstructive Pulmonary Disease, Upper Respiratory Infection, Adult, [id number]. - Prescriptions for Prednisone 20 mg Oral Tablet - take 1 tablet by ORAL route as directed Day 1-3: 3 po, day 4-7: 2 po, day 8-10: 1 po; 20 tablet. benzonatate 200 mg Oral Capsule - take 1 capsule by ORAL route 3 times per day As needed; 30 capsule. - Medication Reconciliation, Local Pharmacy Hours form. - Follow up: Ann De La Torre RNNP; When: As soon as possible; Reason: Recheck today's complaints, Continuance of care. Follow up: Emergency Department; When: As needed; Reason: Fever > 102F, Trouble breathing, Worsening of conditions. - Problem is new. - Symptoms have improved. Historical: - Allergies: Advair Diskus (thrush); - Home Meds: 1. Lialda 1.2 gram oral TbEC once daily 2. duloxetine 30 mg Oral cpDR 2 times per day 3. cyclobenzaprine 5 mg Oral tab as needed 4. omeprazole 40 mg Oral cpDR 1 cap 2 times per day 5. simvastatin 40 mg Oral tab 1 tab once daily 6. topiramate 150 mg oral CSpX twice a day 7. Probiotic oral daily 8. loratadine 10 mg Oral tab 1 tab once daily 9. Vitamin D 2000 units Oral daily 10. DuoNeb 0.5 mg-3 mg(2.5 mg base)/3 mL Inhl nebu 4 times per day 11. Vitamin C 1,000 mg Oral tab daily 12. tylenol arthritis 2 tab prn prn - PMHx: Arthritis; Asthma; back injury--bulging discs--pinched nerves; c-diff; COPD; Hypercholesterolemia; Hypertension; Lyme Disease; right ling cancer; Ulcerative Colitis; whooping cough; - Social history: Smoking status: Patient states former smoker of tobacco. No barriers to communication noted, The patient speaks fluent Latvian. - Family history: Not pertinent. - : The pt / caregiver states he / she is not on anticoagulants. Home medication list is obtained from the patient. - Exposure Risk Screening:: None identified. Vital Signs: 11/08 12:42 BP 177 / 79; Pulse 78; Resp 18 S; Temp 97.4(O); Pulse Ox 100% on R/A; Weight 61.23 kg / gr2 134.99 lbs (R); Height 4 ft. 11 in. (149.86 cm) (R); Pain 8/10; 17:02 BP 118 / 72; Pulse 87; Resp 18; Temp 97.5(O); Pulse Ox 98% on R/A; ct3 12:42 Body Mass Index 27.27 (61.23 kg, 149.86 cm) gr2 MDM: 12:58 ECG WITH READING ER PHYS+CARDIAG ordered. EDMS 15:31 Financial registration complete. lg 15:35 [facility] Payment Agreement was scanned into GREE and attached to record. lg 15:44 Obtain sample by nasopharyngeal swab ordered. ar2 15:44 Albuterol-Ipratropium 1 neb Nebulizer every 20 minutes x3 ordered. ar2 15:45 CBC with Diff Ordered. EDMS 15:45 MED Profile Ordered. EDMS 15:45 -Influenza A&B Rapid Antigen - Nose Ordered. EDMS 15:45 Chest, 2 View (pa\E\lat) Ordered. EDMS 16:37 CBC with Diff Reviewed. ar2 16:37 -Influenza A&B Rapid Antigen - Nose Reviewed. ar2 16:37 MED Profile Reviewed. ar2 16:37 Chest, 2 View (pa\E\lat) Reviewed. ar2 11/09 11:13 T-Sheet-- Draft Copy was scanned into GREE and attached to record. gb 11:13 ECG/EKG was scanned into GREE and attached to record. gb Administered Medications: 11/08 16:10 Drug: Albuterol-Ipratropium 1 neb [ipratropium-albuterol 0.5 mg-3 mg(2.5 mg base)/3 mL js11 nebulization soln (1 neb)] Route: Nebulizer; 16:30 Drug: Albuterol-Ipratropium 1 neb [ipratropium-albuterol 0.5 mg-3 mg(2.5 mg base)/3 mL js11 nebulization soln (1 neb)] Route: Nebulizer; 16:40 Drug: Albuterol-Ipratropium 1 neb [ipratropium-albuterol 0.5 mg-3 mg(2.5 mg base)/3 mL js11 nebulization soln (1 neb)] Route: Nebulizer; Signatures: Dispatcher [employer] EDMS Annie Fuentes, Reg Reg gb iMca Martinez, Reg Reg lg Meek Rosario PA-C PALakisha ar2 Soraya Trujillo RN RN mk4 Nikos Gillis js11 The chart was reviewed and I authenticate all verbal orders and agree with the evaluation and treatment provided.Attachments: 15:35 [facility] Payment Agreement lg 11/09 11:13 T-Sheet-- Draft Copy gb 11:13 ECG/EKG gb Chart Complete MTDD
== END 2016-11-08 17:05 | disposition home or self-care (01) ==
LOC: M ED 12:40
DX: J44.1 Chronic obstructive pulmonary disease with (acute) exacerbation (principal); J06.9 Acute upper respiratory infection, unspecified; I10 Essential (primary) hypertension; E78.00 Pure hypercholesterolemia, unspecified; M19.90 Unspecified osteoarthritis, unspecified site; M51.9 Unspecified thoracic, thoracolumbar and lumbosacral intervertebral disc disorder; A69.20 Lyme disease, unspecified; Z85.118 Personal history of other malignant neoplasm of bronchus and lung; Z87.19 Personal history of other diseases of the digestive system; Z86.19 Personal history of other infectious and parasitic diseases; Z79.899 Other long term (current) drug therapy; Z88.8 Allergy status to other drugs, medicaments and biological substances; Z87.891 Personal history of nicotine dependence

== ENCOUNTER → 2016-11-19 | Outpatient (CLI) | payer MEDICARE, OTHER ==
--- NOTE | 2016-11-19 19:48 | REP ---
Clinical: Emphysema. Comparison: 09/07/2016. Findings: Postsurgical changes along with fibrosis and scarring extending from the right hilum to the periphery of the right upper lung zone as well as calcified subcarinal and hilar adenopathy and chronic calcifications in the apical left upper lobe remain relatively stable. Mild/moderate underlying emphysematous changes and bronchiectasis is also identified without significant change. Previously noted small right pleural effusion has resolved. Multiple healed right rib fractures remain stable. No acute consolidation, significant nodule or mass lesion is appreciated. Atherosclerotic changes to the thoracic aorta noted. Heart and pericardium are normal. No obvious acute adenopathy. Impression: 1. Chronic stable moderate emphysematous changes with bronchiectasis as well as post-therapeutic and postsurgical changes remain stable compared to 09/07/2016. 2. No new, acute mediastinal or pleuroparenchymal process identified. Signed by Eliseo Gonzalez MD 11/19/2016 07:40 P
== END ==
LOC: M RAD 18:24
PROVIDERS: ATTEND Internal Medicine Pulmonary Disease
DX: J43.9 Emphysema, unspecified (principal)

== ENCOUNTER → 2017-01-11 | Outpatient (CLI) | payer MEDICARE, OTHER ==
[~2017-01-11] MED LIST changes: +ISOVUE-370 76% 100ML VIAL (Q9967) As Ordered ONE
--- NOTE | 2017-01-11 12:15 | REP ---
CT of the chest with IV contrast in patient with right upper lobectomy for non-small cell lung carcinoma: Comparisons are 09/07/2016 and 11/19 2016. Postsurgical changes of right upper lobectomy are again identified. There are surgical clips and staple lines in the right hilus extending into the right lung as previously. The volume of soft tissue along staple line has decreased from 09/07/2017 and is unchanged from 11/19/2016. There is no evidence of tumor recurrence. No evidence of right hilar adenopathy. There is no left hilar adenopathy. No mediastinal or axillary adenopathy. There are calcified subcarinal and bilateral hilar nodes, unchanged. There are calcified granulomas in the lower lobe of the left lung, unchanged. These findings are compatible with old healed granulomatous disease. There are no infiltrates or effusions. There are no new lung masses or nodules. The thoracic aorta is unremarkable. Cardiac size normal. No pericardial effusion. Upper abdomen: There is no adrenal mass. The visualized hepatic parenchyma is homogeneous. The gallbladder, pancreas and spleen are unremarkable. Ingested material is incidentally noted in the stomach. Impression: Right upper lobectomy. There is no evidence of tumor recurrence or adenopathy. There are no infiltrates or effusions. Calcified granulomas are again noted as described. No evidence of metastatic disease. There is grade 1 compression deformity of the T12 humeral body inferior endplate, unchanged from studies dating to 07/09/2016. Signed by Bryce Tam MD 01/11/2017 12:08 P
== END ==
LOC: M RAD 10:39
PROVIDERS: ATTEND Internal Medicine Medical Oncology
DX: C34.90 Malignant neoplasm of unspecified part of unspecified bronchus or lung (principal)
CPT/HCPCS: 71260; Q9967

== ENCOUNTER → 2017-01-13 | Outpatient (CLI) | payer MEDICARE, OTHER ==
[~2017-01-13] MED LIST changes: -ISOVUE-370 76% 100ML VIAL (Q9967) As Ordered ONE
--- NOTE | 2017-01-13 10:56 | REP ---
MRI right knee without contrast: History: Right knee pain. Comparison radiographs January 06, 2017. Technique: Sagittal, axial and coronal imaging planes are utilized for T1, proton density and T2-weighted scans obtained in the usual fashion with and without fat saturation. MRI findings: Cortical and medullary bone signal intensity are normal. There is no evidence of joint effusion. No Edwards's cyst is seen. However, there is an irregular somewhat complex periarticular cyst extending caudally from the medial joint line superficial to the distal fibers of the medial collateral ligament. The medial collateral ligament appears intact. I cannot identify a tear in the medial meniscus. This is therefore felt to be most compatible with a ganglion cyst although para meniscal cyst is a possibility. No other juxta-articular cyst is seen. The patellar and quadriceps tendons are intact. Anterior and posterior cruciate ligaments appear intact. There is no evidence a lateral collateral ligament disruption. There is a pattern of increased signal intensity in the anterior horn of the lateral meniscus which extends to the superior articular margin compatible with a tear. No articular cartilaginous disruption is seen. Impression: Ganglion cyst versus para meniscal cyst at the medial aspect of the proximal tibia. Degenerative tear pattern anterior horn lateral meniscus. No other evidence of internal derangement seen. Signed by Hugo Felder MD 01/13/2017 12:40 P
== END ==
LOC: M RAD 07:20
PROVIDERS: ATTEND Nurse Practitioner Adult Health
DX: M25.561 Pain in right knee (principal)

== ENCOUNTER → 2017-01-14 | Outpatient (CLI) | payer MEDICARE, OTHER ==
--- NOTE | 2017-01-14 11:15 | REP ---
KUB: Single view. History: Abdominal pain, diarrhea, hernia, gastroesophageal reflux disease. Findings: There are metallic hernia fasteners in the suprapubic region of the pelvis. There is a levoconvex curve in the lumbar spine along with some degenerative disc changes. The bowel gas pattern is normal. No large or small bowel dilation is seen. Psoas margins and flank stripes are intact. There is diffuse osteopenia. Impression: Unremarkable bowel gas pattern. Signed by Hugo Felder MD 01/14/2017 12:49 P
== END ==
LOC: M SMT 10:29
PROVIDERS: ATTEND Internal Medicine Gastroenterology
DX: R10.84 Generalized abdominal pain (principal); K59.1 Functional diarrhea; K44.9 Diaphragmatic hernia without obstruction or gangrene

== ENCOUNTER → 2017-01-15 | Outpatient (REF) | payer MEDICARE, OTHER | LOC: M LAB REF 14:12 | PROVIDERS: ATTEND Internal Medicine Gastroenterology | DX: R10.84 Generalized abdominal pain (principal); K44.9 Diaphragmatic hernia without obstruction or gangrene; K21.9 Gastro-esophageal reflux disease without esophagitis; K59.1 Functional diarrhea ==

== ENCOUNTER → 2017-05-02 | Outpatient (CLI) | payer MEDICARE, OTHER ==
[~2017-05-02] MED LIST changes: -TOPA50TA7 PO; +TOPA50TA8 PO
[2017-05-02 19:06] LABS: ALBUMIN 4.4 GM/DL (3.2-5.2); ALBUMIN/GLOBULIN RATIO 1.76 (1.00-1.93); ALKALINE PHOSPHATASE 107 U/L (45-117); ALT/SGPT 27 U/L (12-78); ANION GAP 8 MEQ/L (8-16); AST/SGOT 17 U/L (15-37); BILIRUBIN,TOTAL 0.5 MG/DL (0.2-1.0); BLOOD UREA NITROGEN 12 MG/DL (7-18); CARBON DIOXIDE LEVEL 22 MEQ/L (21-32); CHLORIDE LEVEL 110 MEQ/L (98-107); CREATININE FOR GFR 0.73 MG/DL (0.55-1.02); GLOMERULAR FILTRATION RATE > 60.0 (>45); GLUCOSE, FASTING 122 MG/DL (80-110); POTASSIUM SERUM 4.5 MEQ/L (3.5-5.1); SODIUM LEVEL 140 MEQ/L (136-145); TOTAL PROTEIN 6.9 GM/DL (6.4-8.2)
[2017-05-02 19:13] LABS: MEAN CORPUSCULAR HEMOGLOBIN 33.9 pg (27.0-33.0); MEAN CORPUSCULAR HGB CONC 33.6 g/dl (32.0-36.5); MEAN CORPUSCULAR VOLUME 100.8 fl (80.0-96.0); RED CELL DISTRIBUTION WIDTH 12.7 % (11.5-14.5); WHITE BLOOD COUNT 5.5 K/mm3 (4.0-10.0)
== END ==
LOC: M SMT 14:04
PROVIDERS: ATTEND Internal Medicine Gastroenterology
DX: R10.31 Right lower quadrant pain (principal); K59.00 Constipation, unspecified; R14.1 Gas pain; K44.9 Diaphragmatic hernia without obstruction or gangrene; E55.9 Vitamin D deficiency, unspecified

== ENCOUNTER → 2017-05-06 | Outpatient (CLI) | payer MEDICARE, OTHER ==
[~2017-05-06] MED LIST changes: +GASTROGRAFIN SOLUTION 30ML (Q9963) As Ordered ONE; +ISOVUE-370 76% 100ML VIAL (Q9967) As Ordered ONE
--- NOTE | 2017-05-06 18:16 | REP ---
CT of the abdomen pelvis without and with IV contrast and with bowel contrast: Comparisons 07/23/2016. The visualized lung davis are unremarkable. The previous small right pleural effusion has resolved. The hepatic parenchyma, gallbladder, pancreas and spleen are unremarkable except for splenic calcified granulomas. This is unchanged. The adrenals, kidneys and abdominal aorta are unchanged. Aortic calcified atheroma is again identified. The bowel and mesentery are unremarkable. Pelvis: The bladder, uterus and adnexa are unremarkable. There is no adenopathy or ascites. There is diverticulosis of the descending colon and sigmoid colon. There is no evidence of acute diverticulitis. There is no adenopathy. Impression: Diverticulosis without diverticulitis. Otherwise, essentially negative CT of the abdomen and pelvis. Signed by Bryce Tam MD 05/06/2017 06:08 P
== END ==
LOC: M RAD 14:49
PROVIDERS: ATTEND Internal Medicine Gastroenterology
DX: R10.9 Unspecified abdominal pain (principal)
CPT/HCPCS: 74178; Q9963; Q9967

== ENCOUNTER → 2017-07-08 | Outpatient (CLI) | payer MEDICARE, OTHER ==
[~2017-07-08] MED LIST changes: -GASTROGRAFIN SOLUTION 30ML (Q9963) As Ordered ONE; -ISOVUE-370 76% 100ML VIAL (Q9967) As Ordered ONE
[2017-07-08 15:08] LABS: BASO % 0.8 % (0.0-1.0); EOS # 0.1 10^3/uL (0.0-0.50); EOS % 2.7 % (0.0-3.0); IMMATURE GRANULOCYTE % 0.2 % (0-0); LYMPH # 1.5 10^3/uL (1.5-4.5); LYMPH % 32.3 % (24.0-44.0); MEAN CORPUSCULAR HEMOGLOBIN 32.9 pg (27.0-33.0); MEAN CORPUSCULAR HGB CONC 32.2 g/dl (32.0-36.5); MEAN CORPUSCULAR VOLUME 102.1 fl (80.0-96.0); MONO # 0.4 10^3/uL (0.0-0.8); MONO % 7.8 % (0.0-5.0); NEUTROPHILS # 2.7 10^3/uL (1.8-7.7); NEUTROPHILS % 56.2 % (36.0-66.0); RED CELL DISTRIBUTION WIDTH 12.9 % (11.5-14.5); WHITE BLOOD COUNT 4.7 10^3/uL (4.0-10.0)
[2017-07-08 15:24] LABS: ALBUMIN 4.5 GM/DL (3.2-5.2); ALKALINE PHOSPHATASE 91 U/L (45-117); ALT/SGPT 26 U/L (12-78); ANION GAP 6 MEQ/L (8-16); AST/SGOT 16 U/L (15-37); BILIRUBIN,TOTAL 0.4 MG/DL (0.2-1.0); BLOOD UREA NITROGEN 15 MG/DL (7-18); CALCIUM LEVEL 9.9 MG/DL (8.8-10.2); CARBON DIOXIDE LEVEL 27 MEQ/L (21-32); CHLORIDE LEVEL 108 MEQ/L (98-107); CHOLESTEROL LEVEL 255 MG/DL (<200); CREATININE FOR GFR 0.69 MG/DL (0.55-1.02); GLOMERULAR FILTRATION RATE > 60.0 (>45); GLUCOSE, FASTING 100 MG/DL (80-110); MAGNESIUM LEVEL 2.4 MG/DL (1.8-2.4); SODIUM LEVEL 141 MEQ/L (136-145); TRIGLYCERIDES LEVEL 271 MG/DL (<150)
== END ==
LOC: M SMT 10:17
PROVIDERS: ATTEND Nurse Practitioner Adult Health
DX: R10.13 Epigastric pain (principal); R14.0 Abdominal distension (gaseous); C34.91 Malignant neoplasm of unspecified part of right bronchus or lung; R22.2 Localized swelling, mass and lump, trunk; K52.89 Other specified noninfective gastroenteritis and colitis; K58.9 Irritable bowel syndrome, unspecified; I10 Essential (primary) hypertension; Z79.899 Other long term (current) drug therapy

== ENCOUNTER → 2017-11-10 | Outpatient (CLI) | payer MEDICARE, OTHER ==
[~2017-11-10] MED LIST changes: -/TIOT18INH INH; -ANOR1AER INH; -ASPI81TA PO; -BENI20TA11 OR; -BENI20TA11 PO; -BENT10CA PO; -CIPR500T19 PO; -COLA100C2 OR; -CRES20TA OR; -DEXA4TA PO; -DIGO0.25 PO; -DULO1CAP2 PO; -DUONSOL IN; -FLAG500T PO; -FURO40TA2 PO; -HYDR-3713 PO; -IPRASOL4 NEB; +ISOVUE-370 76% 100ML VIAL (Q9967) As Ordered; -LASI20TA PO; -LASI40TA PO; -LIAL1.2T PO; -LISI40TAB PO; -LORA10TA2 PO; -Loratadine PO; -MIRALEX PO; -MUCINEX DM PO; -NEUL0.6I SC; -OMEP40CA2 PO; -PROBCAP4 PO; -SIMV40TA2 PO; -TOPA50TA8 PO; -TOPI50TA OR; -TYLE650T35 PO; -VITA10006 PO; -VITA200016 PO; -ZOFR8TAB PO; -[UNRECOGNIZED DRUG - CODE] PO; -aleve PO; -dexilant PO; -gabapentin PO
[2017-11-10 13:35] LABS: ALBUMIN 4.3 GM/DL (3.2-5.2); ALBUMIN/GLOBULIN RATIO 1.54 (1.00-1.93); ALKALINE PHOSPHATASE 107 U/L (45-117); ALT/SGPT 25 U/L (12-78); ANION GAP 8 MEQ/L (8-16); AST/SGOT 19 U/L (7-37); BILIRUBIN,TOTAL 0.4 MG/DL (0.2-1.0); BLOOD UREA NITROGEN 12 MG/DL (7-18); CALCIUM LEVEL 9.5 MG/DL (8.8-10.2); CARBON DIOXIDE LEVEL 24 MEQ/L (21-32); CHLORIDE LEVEL 107 MEQ/L (98-107); CREATININE FOR GFR 0.58 MG/DL (0.55-1.30); GLOMERULAR FILTRATION RATE > 60.0 (>45); GLUCOSE, FASTING 98 MG/DL (70-100); POTASSIUM SERUM 3.8 MEQ/L (3.5-5.1); SODIUM LEVEL 139 MEQ/L (136-145); TOTAL PROTEIN 7.1 GM/DL (6.4-8.2)
== END ==
LOC: M RAD 11:18
DX: C34.11 Malignant neoplasm of upper lobe, right bronchus or lung (principal)
CPT/HCPCS: Q9967

== ENCOUNTER → 2017-12-07 | Outpatient (CLI) | payer MEDICARE, OTHER | LOC: M SMT 13:06 | DX: Z85.118 Personal history of other malignant neoplasm of bronchus and lung (principal) | CPT/HCPCS: 71046 ==

== ENCOUNTER → 2018-01-24 | Outpatient (CLI) | payer MEDICARE, OTHER ==
[2018-01-24 14:29] LABS: BASO % 0.7 % (0.0-1.0); EOS # 0.1 10^3/uL (0.0-0.50); EOS % 2.2 % (0.0-3.0); HEMATOCRIT 43.8 % (36.0-47.0); HEMOGLOBIN 14.6 g/dl (12.0-15.5); IMMATURE GRANULOCYTE % 0.2 % (0-3.0); LYMPH # 1.9 10^3/uL (1.5-4.5); LYMPH % 35.9 % (24.0-44.0); MEAN CORPUSCULAR HEMOGLOBIN 34.5 pg (27.0-33.0); MEAN CORPUSCULAR HGB CONC 33.3 g/dl (32.0-36.5); MEAN CORPUSCULAR VOLUME 103.5 fl (80.0-96.0); MONO # 0.4 10^3/uL (0.0-0.8); MONO % 8.1 % (0.0-5.0); NEUTROPHILS # 2.9 10^3/uL (1.8-7.7); NEUTROPHILS % 52.9 % (36.0-66.0); PLATELET COUNT, AUTOMATED 248 10^3/uL (150-450); RED BLOOD COUNT 4.23 10^6/uL (4.00-5.40); RED CELL DISTRIBUTION WIDTH 12.7 % (11.5-14.5); WHITE BLOOD COUNT 5.4 10^3/uL (4.0-10.0)
[2018-01-24 14:40] LABS: TOTAL 25(OH) VITAMIN D 33.1 NG/ML (30.0-100.0)
[2018-01-24 14:51] LABS: ALBUMIN 4.3 GM/DL (3.2-5.2); ALBUMIN/GLOBULIN RATIO 1.59 (1.00-1.93); ALKALINE PHOSPHATASE 118 U/L (45-117); ALT/SGPT 18 U/L (12-78); ANION GAP 4 MEQ/L (8-16); AST/SGOT 18 U/L (7-37); BILIRUBIN,TOTAL 0.3 MG/DL (0.2-1.0); BLOOD UREA NITROGEN 10 MG/DL (7-18); CARBON DIOXIDE LEVEL 26 MEQ/L (21-32); CHLORIDE LEVEL 110 MEQ/L (98-107); CHOLESTEROL LEVEL 206 MG/DL (<200); CHOLESTEROL RISK RATIO 3.322 (<5); CREATININE FOR GFR 0.67 MG/DL (0.55-1.30); FREE T4 0.83 NG/DL (0.76-1.46); GLOMERULAR FILTRATION RATE > 60.0 (>45); GLUCOSE, FASTING 96 MG/DL (70-100); HDL CHOLESTEROL 62 MG/DL (>40); NON-HDL-C 144 MG/DL; POTASSIUM SERUM 4.4 MEQ/L (3.5-5.1); SODIUM LEVEL 140 MEQ/L (136-145); TRIGLYCERIDES LEVEL 115 MG/DL (<150)
[2018-01-24 14:58] LABS: ESTIMATED AVERAGE GLUCOSE 108 MG/DL (60-110); HEMOGLOBIN A1c 5.4 %
== END ==
LOC: M SMT 10:28
DX: I10 Essential (primary) hypertension (principal); K21.9 Gastro-esophageal reflux disease without esophagitis; J44.9 Chronic obstructive pulmonary disease, unspecified; E78.00 Pure hypercholesterolemia, unspecified; Z79.899 Other long term (current) drug therapy
CPT/HCPCS: 84443

== ENCOUNTER → 2018-02-28 | Outpatient (CLI) | payer MEDICARE, OTHER | LOC: M PLARAD 14:41 | DX: C34.91 Malignant neoplasm of unspecified part of right bronchus or lung (principal); Z85.118 Personal history of other malignant neoplasm of bronchus and lung; R22.2 Localized swelling, mass and lump, trunk; J90 Pleural effusion, not elsewhere classified | CPT/HCPCS: 78815 ==

== ENCOUNTER → 2018-06-29 | Outpatient (CLI) | payer MEDICARE ==
[2018-06-29 16:30] LABS: HEMATOCRIT 39.9 % (36.0-47.0); HEMOGLOBIN 13.5 g/dl (12.0-15.5); MEAN CORPUSCULAR HEMOGLOBIN 34.9 pg (27.0-33.0); MEAN CORPUSCULAR HGB CONC 33.8 g/dl (32.0-36.5); MEAN CORPUSCULAR VOLUME 103.1 fl (80.0-96.0); PLATELET COUNT, AUTOMATED 270 10^3/uL (150-450); RED BLOOD COUNT 3.87 10^6/uL (4.00-5.40); RED CELL DISTRIBUTION WIDTH 13.5 % (11.5-14.5); WHITE BLOOD COUNT 8.2 10^3/uL (4.0-10.0)
[2018-06-29 16:41] LABS: ALKALINE PHOSPHATASE 82 U/L (45-117); ALT/SGPT 22 U/L (12-78); ANION GAP 8 MEQ/L (8-16); AST/SGOT 12 U/L (7-37); BILIRUBIN,TOTAL 0.4 MG/DL (0.2-1.0); BLOOD UREA NITROGEN 10 MG/DL (7-18); C REACTIVE PROTEIN QUANTITATIV < 0.30 MG/DL (0.00-0.30); CALCIUM LEVEL 9.2 MG/DL (8.8-10.2); CARBON DIOXIDE LEVEL 27 MEQ/L (21-32); CHLORIDE LEVEL 102 MEQ/L (98-107); CREATININE FOR GFR 0.73 MG/DL (0.55-1.30); FERRITIN 54 NG/ML (8-252); GLOMERULAR FILTRATION RATE > 60.0 (>45); GLUCOSE, FASTING 105 MG/DL (70-100); IRON (FE) 123 UG/DL (50-170); MAGNESIUM LEVEL 1.5 MG/DL (1.8-2.4); PERCENT SATURATION 50.8 % (13.2-45.0); POTASSIUM SERUM 3.6 MEQ/L (3.5-5.1); SODIUM LEVEL 137 MEQ/L (136-145); TOTAL IRON BINDING CAPACITY 242 UG/DL (250-450); TOTAL PROTEIN 6.1 GM/DL (6.4-8.2)
[2018-06-29 16:48] LABS: TOTAL 25(OH) VITAMIN D 28.4 NG/ML (30.0-100.0)
== END ==
LOC: M WUC 14:21
DX: R10.13 Epigastric pain (principal); K59.1 Functional diarrhea; K52.89 Other specified noninfective gastroenteritis and colitis; K44.9 Diaphragmatic hernia without obstruction or gangrene; R53.83 Other fatigue; E55.9 Vitamin D deficiency, unspecified; R63.4 Abnormal weight loss
CPT/HCPCS: 83550

== ENCOUNTER → 2018-07-12 | Outpatient (REF) | payer MEDICARE ==
[2018-07-12 14:04] LABS: CREATININE FOR GFR 0.51 MG/DL (0.55-1.30); GLOMERULAR FILTRATION RATE > 60.0 (>45)
[2018-07-12 14:04] LABS: BLOOD UREA NITROGEN 6 MG/DL (7-18)
== END ==
LOC: M LAB REF 13:09
DX: R06.00 Dyspnea, unspecified (principal)
CPT/HCPCS: 82565

== ENCOUNTER → 2018-07-20 | Outpatient (REF) | payer MEDICARE ==
[2018-07-20 13:48] LABS: BASO # 0.1 10^3/uL (0.0-0.2); EOS # 0.2 10^3/uL (0.0-0.50); EOS % 2.6 % (0.0-3.0); HEMATOCRIT 42.5 % (36.0-47.0); HEMOGLOBIN 14.6 g/dl (12.0-15.5); IMMATURE GRANULOCYTE % 0.7 % (0-3.0); LYMPH # 1.7 10^3/uL (1.5-4.5); LYMPH % 27.7 % (24.0-44.0); MEAN CORPUSCULAR HGB CONC 34.4 g/dl (32.0-36.5); MEAN CORPUSCULAR VOLUME 101.9 fl (80.0-96.0); MONO # 0.5 10^3/uL (0.0-0.8); MONO % 8.6 % (0.0-5.0); NEUTROPHILS # 3.7 10^3/uL (1.8-7.7); NEUTROPHILS % 59.4 % (36.0-66.0); PLATELET COUNT, AUTOMATED 324 10^3/uL (150-450); RED BLOOD COUNT 4.17 10^6/uL (4.00-5.40); WHITE BLOOD COUNT 6.1 10^3/uL (4.0-10.0)
[2018-07-20 14:11] LABS: ALBUMIN 4.2 GM/DL (3.2-5.2); ALKALINE PHOSPHATASE 110 U/L (45-117); ALT/SGPT 19 U/L (12-78); AST/SGOT 17 U/L (7-37); BILIRUBIN,DIRECT 0.1 MG/DL (0.0-0.2); BILIRUBIN,TOTAL 0.3 MG/DL (0.2-1.0); CALCIUM LEVEL 10.1 MG/DL (8.8-10.2); CREATININE FOR GFR 0.46 MG/DL (0.55-1.30); GLOMERULAR FILTRATION RATE > 60.0 (>45); TOTAL PROTEIN 6.3 GM/DL (6.4-8.2)
[2018-07-20 14:19] LABS: TOTAL 25(OH) VITAMIN D 52.1 NG/ML (30.0-100.0)
== END ==
LOC: M LAB REF 13:10
DX: R91.8 Other nonspecific abnormal finding of lung field (principal)
CPT/HCPCS: 82310

== ENCOUNTER → 2018-08-14 | Outpatient (CLI) | payer MEDICARE | LOC: M SMT 10:20 | DX: J43.8 Other emphysema (principal); J95.811 Postprocedural pneumothorax | CPT/HCPCS: 71046 ==

== ENCOUNTER → 2018-08-28 | Outpatient (CLI) | payer MEDICARE ==
[~2018-08-28] MED LIST changes: +GASTROGRAFIN SOLUTION 30ML (Q9963) As Ordered
== END ==
LOC: M RAD 16:15
DX: C34.90 Malignant neoplasm of unspecified part of unspecified bronchus or lung (principal)
CPT/HCPCS: Q9963

== ENCOUNTER → 2018-09-01 | Outpatient (CLI) | payer MEDICARE ==
[~2018-09-01] MED LIST changes: -GASTROGRAFIN SOLUTION 30ML (Q9963) As Ordered; -ISOVUE-370 76% 100ML VIAL (Q9967) As Ordered; +PROHANCE 279.3MG/ML 15ML VIAL (A9576) As Ordered
== END ==
LOC: M RAD 08:03
DX: C34.90 Malignant neoplasm of unspecified part of unspecified bronchus or lung (principal); J90 Pleural effusion, not elsewhere classified; M51.25 Other intervertebral disc displacement, thoracolumbar region
CPT/HCPCS: A9576

== ENCOUNTER → 2018-09-05 | Outpatient (CLI) | payer MEDICARE | LOC: M PLARAD 14:21 | DX: C34.92 Malignant neoplasm of unspecified part of left bronchus or lung (principal); J90 Pleural effusion, not elsewhere classified | CPT/HCPCS: 78815 ==

== ENCOUNTER → 2018-09-22 | Outpatient (CLI) | payer MEDICARE ==
[~2018-09-22] MED LIST changes: +/TIOT18INH INH; +ANOR1AER INH; +ANOR1AER PO; +ASPI81CH40 PO; +ATOR40TA75 PO; +BENI20TA11 OR; +BENI20TA11 PO; +BENT10CA PO; +CIPR500T19 PO; +COLA100C2 OR; +CRES20TA OR; +DEXA4TA PO; +DICY20TA11 PO; +DIGO0.25 PO; +DULO1CAP2 PO; +DULO30CA PO; +DUONSOL IN; +FLAG500T PO; +FOLI800C PO; +FURO40TA2 PO; +GABA-1171 PO; +HYDR-3713 PO; +IPRA0.00 NEB; +LANS30CA PO; +LASI20TA3 PO; +LASI40TA9 PO; +LEVO500T3 PO; +LIAL1.2T PO; +LISI40TAB PO; +LORA-243 PO; +Loratadine PO; +MIRALEX PO; +MUCINEX DM PO; +NEUL0.6I SC; +OMEP40CA2 PO; +OXYC-517 PO; +PERCOCET PO; +PROBCAP4 PO; -PROHANCE 279.3MG/ML 15ML VIAL (A9576) As Ordered; +SIMV40TA2 PO; +SUCR1SS PO; +TOPA50TA8 PO; +TOPI200T7 PO; +TOPI50TA OR; +TYLE650T35 PO; +VITA10006 PO; +VITA200016 PO; +ZOFR8TAB24 PO; +[UNRECOGNIZED DRUG - CODE] PO; +aleve PO; +dexilant PO; +gabapentin PO
--- NOTE | 2018-09-22 13:51 | REP ---
MRI BRAIN WITHOUT AND WITH IV CONTRAST: HISTORY: Metastatic non-small cell lung carcinoma. Question brain metastasis. Brain nodule on head CT. Comparison brain CT study is from August 28, 2018. There is an MRI study of the brain is from May 17, 2016. TECHNIQUE: Axial and sagittal imaging planes are utilized for T1- and T2-weighted scans. Sequences include spin-echo, fast spin echo, FLAIR, and diffusion weighted sequences. Gadolinium enhancement dose is 10 ml of intravenous ProHance. MRI FINDINGS: Postcontrast images again demonstrate a subcentimeter area of gyral contrast enhancement in the right frontal lobe 5 mm in diameter identical to the faint blush of contrast enhancement seen in this location on recent CT study. This is new from the prior MRI of May 17, 2016 and in this patient with metastatic non-small cell cancer, must be taken as suspicious for early intracranial metastasis. There are one or two other tiny gyral foci of even smaller contrast enhancement in the left frontal lobe and right temporal lobe, which are also felt to be suspicious. These are only visible on the postcontrast sequences. No discernible mass lesion is seen. There is no evidence of restricted diffusion to suggest acute ischemia. No extra-axial fluid collection is seen. No mass effect is observed. Small air fluid levels are seen in the maxillary sinuses. IMPRESSION: Subtle findings suspicious for early intracranial metastatic disease. Electronically Signed by Hugo Felder MD 09/22/2018 04:14 P
== END ==
LOC: M PLARAD 10:50
PROVIDERS: ATTEND Internal Medicine Medical Oncology
DX: C34.90 Malignant neoplasm of unspecified part of unspecified bronchus or lung (principal)

== ENCOUNTER → 2018-09-29 | Outpatient (CLI) | payer MEDICARE ==
--- NOTE | 2018-09-30 09:04 | RADONC ---
RADIATION ONCOLOGY CONSULTATION NOTE DATE: 09/29/2018 CHART NUMBER: [id number] DIAGNOSIS: Lung cancer. STAGE: IV, metastatic. ECOG PERFORMANCE STATUS: 1 CONSULTATION NOTE: Ms. 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 HISTORY OF PRESENT ILLNESS: The patient was first seen by me on 05/13/2016. At that time she was found to have a 3 cm x 1.4 cm nodular density in the right upper lobe. A CT guided biopsy was undertaken on 04/27/2016 and pathology revealed a well to moderately differentiated adenocarcinoma. The patient was treated with a right upper lobectomy and underwent a single cycle of adjuvant carboplatin and Taxol. This was poorly tolerated and radiation was discontinued. The patient had done relatively well but developed more shortness of breath and fatigue and in the spring a chest x-ray was done which showed left sided lymphangitic spread. A PET scan was done and showed new foci in the subcarinal region as well as right pleural effusion. A recent PET scan done on 09/05/2018 showed extensive pulmonary parenchymal hypermetabolic uptake bilaterally consistent with extensive diffuse bilateral lymphangitic neoplastic spread. There was also a moderate right pleural effusion. There was some right hilar, perihilar and subcarinal jake hypermetabolic uptake as well as uptake in the superior mediastinum. The patient was seen by Dr. Mixon and deemed not to be a candidate for systemic therapy. Hospice was recommended. Dr. Mixon did order however an MRI of the brain which was done on 09/22/2018. This showed a postcontrast 5 mm area of faint blush. This was in the right frontal lobe. This was new when compared to prior MRI from May 17, 2016. There was one or two other tiny gyral foci of even smaller contrast enhancement in the left frontal lobe and right temporal lobe. These were also thought to be suspicious for metastatic disease. The patient is asymptomatic with regards to these lesions. She does have a long unchanged history of migraine headaches. She has refused hospice and is now representing to us to discuss whole brain radiation therapy. PAST MEDICAL HISTORY: The patient's past medical history is positive for emphysema, hypertension, bronchitis and arthritis. She has a history of carpal tunnel syndrome as well as an inguinal hernia. ALLERGIES: The patient is allergic to ADVAIR. SOCIAL HISTORY: The patient has smoked cigarettes for over 50 years. She does not abuse alcohol. FAMILY HISTORY: The patient's family history is positive for two sisters with breast cancer, and a son with kidney and bladder cancer. REVIEW OF SYSTEMS: The patient's review of systems is positive for chronic back pain as well as shortness of breath and hearing loss. She has physical limitations secondary to some anorexia and anxiety. She has had significant weight loss. She denies nausea, vomiting, fevers, chills, night sweats, diplopia, urinary or bowel difficulties. PHYSICAL EXAMINATION: The patient is a well-developed, well-nourished white female in no acute distress. HEENT exam is normocephalic, atraumatic. Extraocular movements are intact. There is no palpable cervical, supraclavicular, infraclavicular, axillary, or inguinal lymphadenopathy present. Lungs have decreased breath sounds bilaterally. Heart has a regular rate and rhythm. Abdomen is benign with no hepatosplenomegaly, masses, or tenderness. Breast examination reveals no masses or discharge bilaterally. Skeletal examination reveals no tenderness to pressure or percussion of the bony skeleton. Extremities reveal no clubbing, cyanosis, or edema. Neurologic exam is grossly intact, as is the remainder of the physical examination. ASSESSMENT: I had a very lengthy discussion with this patient and her family. I made very clear to them that radiation is a quality of life treatment. We are not curative and treating her to the brain will not extend her life by even minutes. I am most concerned with her lung disease which is not being treated. I personally think hospice would be the best benefit for this patient. The patient technically is a candidate for external beam and I have so informed her. I have discussed with the patient in detail the potential benefits as well as possible acute and chronic sequelae of external beam radiation therapy. We discussed logistics of treatment planning, simulation and subsequent fractionated daily radiation treatments. In light of the fact that we are now in the middle of winter and this lesion is exceedingly small and just subtle, not being definitive for metastatic disease, I have recommended that we could follow her. I have offered to give for a followup appointment in approximately 8 weeks and we can repeat an MRI at that time. The patient has a limited amount of time left and I would hate to infringe on what is left of her quality of life by causing her the fatigue and side effects of radiation to the whole brain. We went on with our discussion and the patient and her family did agree to come back in 8 weeks and reevaluate. I made clear that should she decide at any time that she wishes to have radiation before the 8 weeks, we are more than glad to see her, simulate her and initiate treatments. She has been given my cell phone number as well as work number and told feel free and call me at anytime if she has any further questions or should she decide on radiation. She also is aware that we can set up hospice for her if she so desires. In addition, I let her know that we would be available to her for any other issues, for example, if she develops bone pain. I explained the role of palliative radiation therapy for metastatic disease at multiple sites to her and let her know that we are here and would like to know if we could be of any assistance in the meantime. She has agreed that she will contact my office if she develop any new symptoms, or wish to be evaluated for potential palliative treatment in the future as well. Thank you for allowing us to participate in the care of this very pleasant woman. If I could be of any further assistance, or provide you with any information, please feel free to contact me anytime. cc: MD Cj Cabello MD
== END ==
LOC: M ONCR 10:09
PROVIDERS: ATTEND Radiology Radiation Oncology
DX: C34.90 Malignant neoplasm of unspecified part of unspecified bronchus or lung (principal)